=== PATIENT | female | born 1975 | race Caucasian/White ===

== ENCOUNTER → 2017-08-02 | Emergency (ER) | payer OTHER ==
[~2017-08-02] VITALS: Ht 160 cm; Wt 83.5 kg
== END | disposition home or self-care (01) ==
LOC: ER 18:45
DX: D64.89 Other specified anemias (principal); R06.02 Shortness of breath; N93.8 Other specified abnormal uterine and vaginal bleeding

== ENCOUNTER 2019-10-15 14:10 | Inpatient (IN) | payer OTHER ==
[~2019-10-15] VITALS: Ht 160 cm; Wt 89.4 kg
== END 2019-10-18 14:27 | disposition home or self-care (01) | DRG 812 ==
LOC: ER 14:10 → SURH 18:24 → SEC-K 18:24 → SURH 21:12
PROVIDERS: ADMIT Internal Medicine; ATTEND Internal Medicine
PROC: 4A12X4Z Monitoring of Cardiac Electrical Activity, External Approach (ICD-10-PCS; principal; 2019-10-15)
PROC: 3E0F7GC Introduction of Other Therapeutic Substance into Respiratory Tract, Via Natural or Artificial Opening (ICD-10-PCS; 2019-10-15)
PROC: 30233N1 Transfusion of Nonautologous Red Blood Cells into Peripheral Vein, Percutaneous Approach (ICD-10-PCS; 2019-10-16)
DX: D50.9 Iron deficiency anemia, unspecified (principal); E86.0 Dehydration; I10 Essential (primary) hypertension; N92.1 Excessive and frequent menstruation with irregular cycle; G44.209 Tension-type headache, unspecified, not intractable